=== PATIENT | male | born 1955 | race Caucasian/White ===

== ENCOUNTER 2017-03-18 22:38 | Emergency (ER) | payer BC ==
[2017-03-19] MEDS ORDERED: KEFLEX500 M4 PO (00:37)
== END 2017-03-19 00:44 ==
LOC: EDMED 22:38
PROC: 2W3KX1Z Immobilization of Left Finger using Splint (ICD-10-PCS; principal; 2017-03-18)
PROC: 0HQGXZZ Repair Left Hand Skin, External Approach (ICD-10-PCS; 2017-03-18)
DX: S62.631B Displaced fracture of distal phalanx of left index finger, initial encounter for open fracture (principal); W27.0XXA Contact with workbench tool, initial encounter; Y92.019 Unspecified place in single-family (private) house as the place of occurrence of the external cause